=== PATIENT | male | born 1965 | race Caucasian/White ===

== ENCOUNTER 2017-06-17 10:50 | Emergency (ER) | payer MEDICAID | END 2017-06-17 10:58 | disposition left against medical advice (07) | LOC: ED 10:50 | DX: Z53.21 Procedure and treatment not carried out due to patient leaving prior to being seen by health care provider (principal) ==

== ENCOUNTER 2018-10-02 14:20 | Emergency (ER) | payer MEDICAID ==
[~2018-10-02] VITALS: Ht 175.3 cm; Wt 83.9 kg
[2018-10-02 14:29] VITALS: Ht 175.3 cm; Wt 83.9 kg
[2018-10-02 15:11] LABS: BASOPHIL % 0.8 % (0-2); PLATELET COUNT 175 x10^3mcL (130-400); RED CELL DISTRIBUTION WIDTH 13.5 % (11.5-14.5)
[2018-10-02 15:21] LABS: BILIRUBIN TOTAL 0.34 mg/dL (0.20-1.00); CALCIUM 9.1 mg/dL (8.5-10.1); CARBON DIOXIDE 29.2 mmol/L (21-32); TOTAL PROTEIN, SERUM 6.8 g/dL (6.4-8.2)
[2018-10-02 15:40] LABS: ALBUMIN 3.2 g/dL (3.4-5.0); CHOLESTEROL/HDL RATIO 4.9; CREATININE SERUM 13.5 mg/dL (0.7-1.3)
[2018-10-02 21:04] VITALS: BP 169/99
== END 2018-10-02 16:30 | disposition home or self-care (01) ==
LOC: ED 14:20
PROVIDERS: Specialist
DX: I12.0 Hypertensive chronic kidney disease with stage 5 chronic kidney disease or end stage renal disease (principal); N18.6 End stage renal disease; E78.00 Pure hypercholesterolemia, unspecified
CPT/HCPCS: 36415; 83880; J1885

== ENCOUNTER 2021-01-09 21:42 | Emergency (ER) | payer MEDICAID ==
[~2021-01-09] VITALS: Ht 175.3 cm; Wt 71.2 kg
[2021-01-09 21:55] VITALS: BP 155/81; Ht 175.3 cm; Wt 71.2 kg
== END 2021-01-09 23:43 | disposition home or self-care (01) ==
LOC: ED 21:42
DX: T82.41XA Breakdown (mechanical) of vascular dialysis catheter, initial encounter (principal); I10 Essential (primary) hypertension; E78.00 Pure hypercholesterolemia, unspecified; Z98.890 Other specified postprocedural states; Y92.89 Other specified places as the place of occurrence of the external cause